=== PATIENT | female | born 1970 | race Hispanic/Latino ===

== ENCOUNTER → 2021-09-15 | Day surgery (SDC) | payer BC ==
[~2021-09-15] MED LIST: BISACODYL5 MG PO; DICYCLOMINE HCL10 MG PO; FAMOTIDINE20 MG PO; PROPOFOL IV EMULSION 10 MG/ML 20 ML VIAL ONE
[2021-09-15 16:55] VITALS: BP 103/62
== END | disposition home or self-care (01) ==
LOC: OR 13:52
PROVIDERS: ATTEND Internal Medicine Gastroenterology
DX: Z12.11 Encounter for screening for malignant neoplasm of colon (principal); D12.4 Benign neoplasm of descending colon; K64.8 Other hemorrhoids; K29.70 Gastritis, unspecified, without bleeding; K44.9 Diaphragmatic hernia without obstruction or gangrene; K21.9 Gastro-esophageal reflux disease without esophagitis; E78.5 Hyperlipidemia, unspecified; E03.9 Hypothyroidism, unspecified; Z88.0 Allergy status to penicillin; Z01.810 Encounter for preprocedural cardiovascular examination; Z01.812 Encounter for preprocedural laboratory examination; Z20.822 Contact with and (suspected) exposure to COVID-19; Z79.899 Other long term (current) drug therapy
CPT/HCPCS: 43239; 45380; 81025; 93005; J2704; U0002; 45378